=== PATIENT | female | born 1970 | race African-American/Black ===

== ENCOUNTER 2018-03-17 17:41 | Emergency (ER) | payer OTHER ==
[2018-03-17] MEDS ORDERED: ONDANSETRON 4 MG/2 ML VIAL IVPUSH ONE (18:00)
[2018-03-17] MEDS ORDERED: SODIUM CHLORIDE 0.9% 1000 ML INFUS.BAG IV ONE (18:00)
--- NOTE | 2018-03-17 18:12 | PDOC ---
Attending Attestation - [facility] HPI: 03/17/18 19:59 Patient is a 47 year old male with a significant past medical history of dilated nonischemic cardiomyopathy, who presents to the ED with complaints of vomiting that began earlier today. Patient reports experiencing constant nausea vomiting with associated shortness of breath that began earlier today prompting her to come into the ED for further evaluation. She reports to believe she is experiencing CHF exacerbation, stating she commonly experiences nausea and vomiting when she has an episode of CHF exacerbation. Denies fevers, chills. Denies contact with sick individuals, out of state travelling. Denies diarrhea, constipation. Denies dysuria, hematuria. Denies any other symptoms. Allergies: Albuterol Social history: Lives with . No smoking. No alcohol.No illicit drugs. Surgical history: defibrillator/pacemaker PMD: None Cardiology: Dr. Gilbert Brenner [phone] - Physicial Exam PE: GENERAL: Well developed, well nourished. Awake and alert. No acute distress. HEENT: Normocephalic, atraumatic. PERRLA, EOMI. No conjunctival pallor. Sclera are non- icteric. Moist mucous membranes. Oropharynx is clear. NECK: Supple. Full ROM. No JVD. Carotid pulses 2+ and symmetric, without bruits. No thyromegaly. No lymphadenopathy. CARDIOVASCULAR: Regular rate and rhythm. No murmurs, rubs, or gallops. Distal pulses are 2+ and symmetric. PULMONARY: +Rhonchi No evidence of respiratory distress. Lungs clear to auscultation bilaterally. No wheezing, rales. ABDOMINAL: Soft. Non-tender. Non-distended. No rebound or guarding. No organomegaly. Normoactive bowel sounds. MUSCULOSKELETAL Normal range of motion at all joints. No bony deformities or tenderness. No CVA tenderness. EXTREMITIES: No cyanosis. No clubbing. No edema. No calf tenderness. SKIN: Warm and dry. Normal capillary refill. No rashes. No jaundice. NEUROLOGICAL: Alert, awake, appropriate. Cranial nerves 2-12 intact. No deficits to light touch and temperature in face, upper extremities and lower extremities. No motor deficits in the in face, upper extremities and lower extremities. Normoreflexic in the upper and lower extremities. Normal speech. Toes are down-going bilaterally. Gait is normal without ataxia. PSYCHIATRIC: Cooperative. Good eye contact. Appropriate mood and affect. - Medical Decision Making 03/17/18 19:01 Washroom Attendant - Dr. Gilbert Brenner Office number: [phone] Cell number: [phone] <Charanjit Frazierew - Last Filed: 03/17/18 19:59> - Resident Resident Name: SeanPuneet rice - ED Attending Attestation I have performed the following: I have examined & evaluated the patient, The case was reviewed & discussed with the resident, I agree w/resident's findings & plan, Exceptions are as noted - HPI HPI: 03/17/18 18:10 47-year-old female brought in by ambulance for complaints of nausea, vomiting, difficulty breathing. History of dilated nonischemic cardiomyopathy with ejection fraction of 20%, defibrillator/pacemaker - Physicial Exam PE: 03/17/18 19:08 wnwd 47 yo female who presents w vomiting,hypotension and c/o shortness of breath - Medical Decision Making bedside echo did NOT show any pericardial effusion 03/17/18 19:56 03/17/18 20:50 EKG is paced rhythm -her covering pillowcase folder DR HAND requests transfer to [facility] where her cardiologists have admitting privileges ADMITTING attending @ [facility] is DR ALVARENGA IMP CHF,cardiomegaly plan TRANSFER <Marilee Lott - Last Filed: 03/17/18 20:57>
[2018-03-17 18:21] VITALS: PULSE 73; TEMP 98.5; BMI 28.5
[2018-03-17 18:36] LABS: BASO % 0.5 % (0-2.0); EOS % 0.2 % (0-4.5); HEMATOCRIT 32.3 % (32.4-45.2); HEMOGLOBIN 10.2 GM/dL (10.7-15.3); MCH 29.8 pg (25.7-33.7); MCHC 31.5 g/dl (32.0-36.0); MEAN CELL VOLUME 94.5 fl (80-96); MEAN PLT VOLUME 8.9 fl (7.5-11.1); MONO % 6.7 % (3.8-10.2); NEUT % 78.6 % (42.8-82.8); PLATELET COUNT 243 K/MM3 (134-434); RBC 3.42 M/mm3 (3.60-5.2); RDW 15.9 % (11.6-15.6); WHITE BLOOD COUNT 4.6 K/mm3 (4.0-10.0)
[2018-03-17] MEDS ORDERED: ONDANSETRON 4 MG/2 ML VIAL ONE (18:38)
[2018-03-17] MEDS ORDERED: LORazepam 2 MG/ML SDV VIAL ONE (18:42)
[2018-03-17 18:48] LABS: INR 2.13 (0.83-1.09); PROTHROMBIN TIME (PATIENT) 24.1 SEC (9.7-13.0)
[2018-03-17 18:49] VITALS: BP 112/61
[2018-03-17 19:56] LABS: ALBUMIN 3.5 g/dl (3.4-5.0); ANION GAP 10 MMOL/L (8-16); BILIRUBIN,TOTAL 0.8 mg/dL (0.2-1.0); BLOOD UREA NITROGEN 19 mg/dL (7-18); CALCIUM 8.3 mg/dL (8.5-10.1); CHLORIDE 109 mmol/L (98-107); CO2 24 mmol/L (21-32); CREATININE 0.9 mg/dL (0.55-1.02); GLUCOSE,RANDOM 72 mg/dL (74-106); SGOT/AST 29 U/L (15-37); SGPT/ALT 29 U/L (12-78); SODIUM 143 mmol/L (136-145); TOT PROT 6.7 g/dl (6.4-8.2)
[2018-03-17 19:59] LABS: ALK PHOS 91 U/L (45-117); N-TERMINAL BNP 7213.49 pg/ml (5-125)
--- NOTE | 2018-03-17 20:03 | PDOC ---
History of Present Illness - General Chief Complaint: Shortness of Breath Stated Complaint: SOB/VOMITING Time Seen by Provider: 03/17/18 17:49 History Source: Patient Exam Limitations: No Limitations - History of Present Illness Initial Comments: 03/17/18 19:48 The patient is a 47F with a PMH of NICM (familial) s/p ICD 2008 (EF 20%) and anxiety who presents to the ER with worsening shortness of breath, nausea, and vomiting. The patient states that for the past 2-3 days, she's experienced worsening shortness of breath, associated with epigastric and retrosternal chest squeezing nonradiating and intermittent, with nausea and vomiting. She vomited today after she took her medications and is unsure of which medications she vomited. Past History - Past Medical History Allergies/Adverse Reactions: Allergies Allergy/AdvReac Type Severity Reaction Status Date / Time albuterol AdvReac Verified 03/17/18 18:16 Home Medications: Ambulatory Orders Allopurinol [Zyloprim -] 100 mg PO DAILY 03/17/18 Amiodarone HCl 300 mg PO DAILY 03/17/18 Citalopram Hydrobromide [Citalopram HBr] 10 mg PO DAILY 03/17/18 Dexlansoprazole [Dexilant] 60 mg PO DAILY 03/17/18 Digoxin [Lanoxin -] 0.125 mg PO DAILY 03/17/18 Eplerenone [Inspra] 50 mg PO DAILY 03/17/18 Ferrous Sulfate 325 mg PO DAILY 03/17/18 Gabapentin 100 mg PO HS 03/17/18 Hydrocodone/Acetaminophen [Vicodin Es 7.5-300 mg Tablet] 1 each PO PRN 03/17/18 Ipratropium [place] [Atrovent Hfa] 12.9 gm IH Q4HWA PRN 03/17/18 Lorazepam [Ativan] 0.5 mg PO Q4HWA PRN 03/17/18 Metoprolol Succinate [Toprol Xl -] 25 mg PO DAILY 03/17/18 Montelukast Na [Singulair -] 10 mg PO HS 03/17/18 Promethazine HCl/Codeine [Promethazine-Codeine Syrup] 5 ml PO Q4HWA PRN Rivaroxaban [Xarelto -] 20 mg PO DAILY 03/17/18 Sacubitril/Valsartan [Entresto 24 mg-26 mg Tablet] 1 each PO BID 03/17/18 Salmeterol Xinafoate [Serevent Diskus] 1 puff IH BID 03/17/18 Torsemide [Demadex] 20 mg PO ASDIR 03/17/18 Cardiac Disorders: Yes (CARDIOMYOPATHY) COPD: No - Surgical History Cardiac Surgery: Yes (PM/DEFIB) - Suicide/Smoking/Psychosocial Hx Smoking History: Never smoked Have you smoked in the past 12 months: No If you are a former smoker, when did you quit?: 2001 Information on smoking cessation initiated: No Hx Alcohol Use: No Drug/Substance Use Hx: No Substance Use Type: None Review of Systems - Review of Systems Able to Perform ROS?: Yes Comments:: 03/17/18 20:03 GENERAL/CONSTITUTIONAL: No fever or chills. No weakness. HEAD, EYES, EARS, NOSE AND THROAT: No change in vision. No ear pain or discharge. No sore throat. CARDIOVASCULAR: Positive for chest pain. No palpitations or lightheadedness. RESPIRATORY: Positive for shortness of breath. No cough, wheezing, or hemoptysis. GASTROINTESTINAL: Positive for nausea, vomiting, and epigastric pain. No diarrhea or constipation. GENITOURINARY: No dysuria, frequency, hematuria, or change in urination. MUSCULOSKELETAL: No joint or muscle swelling or pain. No neck or back pain. SKIN: No rash or lesions. NEUROLOGIC: No headache, numbness, tingling, weakness, loss of consciousness, or change in strength/sensation. ENDOCRINE: No increased thirst. No abnormal weight change. HEMATOLOGIC/LYMPHATIC: No anemia, easy bleeding, or history of blood clots. ALLERGIC/IMMUNOLOGIC: No hives or skin allergy. Is the patient limited Scottish proficient: No *Physical Exam - Vital Signs Last Vital Signs Temp Pulse Resp BP Pulse Ox 98.5 F 73 18 112/61 100 03/17/18 17:41 03/17/18 17:41 03/17/18 17:41 03/17/18 18:48 03/17/18 17:41 - Physical Exam Comments: 03/17/18 20:05 GENERAL: Well developed, well nourished. Awake and alert. In moderate distress. HEENT: Normocephalic, atraumatic. Hearing grossly normal. Moist mucous membranes. PERRLA, EOMI. No conjunctival pallor. Sclera are non-icteric. NECK: Supple. Full ROM. No JVD. CARDIOVASCULAR: Irregularly irregular rate and rhythm. No murmurs, rubs, or gallops. PULMONARY: No evidence of respiratory distress. B/l crackles in lower lung babb. ABDOMINAL: Soft. Tender to deep palpation in epigastrium. Non-distended. No rebound or guarding. GENITOURINARY: No CVA tenderness bilaterally. MUSCULOSKELETAL: Normal range of motion at all joints. No bony deformities or tenderness. EXTREMITIES: No cyanosis. No clubbing. No edema. No calf tenderness or swelling. SKIN: Warm and dry. Normal capillary refill. No rashes. No jaundice. NEUROLOGICAL: Alert, awake, appropriate. Cranial nerves 2-12 grossly intact. Normal speech. Gait is normal without ataxia. PSYCHIATRIC: Cooperative. Good eye contact. Appropriate mood and affect. Heart Score/ECG Review - History History: Moderately suspicious - Electrocardiogram EKG: Non specific repolarization disturbance - Age Age: 45-65 - Risk Factors Risk Factors Heart Score: Yes Positive family hx of cardiac disease Based on the list above the patient has:: 1-2 risk factors #1 General ECG Interpretation: Sinus Rhythm, Normal Rate, Normal Intervals, No acute ischemic changes Compared to previous ECG there are: Changes noted 03/17/18 20:07 Vent paced rhythm irregular Rate 70 HI - QRS 196 QTc 536 No STD or HARPREET No signs of acute ischemia ED Treatment Course - LABORATORY CBC & Chemistry Diagram: 03/17/18 18:29 03/17/18 19:31 - ADDITIONAL ORDERS Additional order review: Laboratory Results 03/17/18 03/17/18 03/17/18 18:29 18:29 17:00 PT with INR 24.10 H INR 2.13 H Sodium Cancelled Potassium Cancelled Chloride Cancelled Carbon Dioxide Cancelled Anion Gap Cancelled BUN Cancelled Creatinine Cancelled Creat Clearance w eGFR Cancelled Random Glucose Cancelled Lactic Acid 3.9 H* Calcium Cancelled Total Bilirubin Cancelled AST Cancelled ALT Cancelled Alkaline Phosphatase Cancelled Creatine Kinase Cancelled Troponin I Cancelled B-Natriuretic Peptide Cancelled Total Protein Cancelled Albumin Cancelled Lipase 03/17/18 17:00 PT with INR INR Sodium Potassium Chloride Carbon Dioxide Anion Gap BUN Creatinine Creat Clearance w eGFR Random Glucose Lactic Acid Calcium Total Bilirubin AST ALT Alkaline Phosphatase Creatine Kinase Troponin I B-Natriuretic Peptide Total Protein Albumin Lipase 58 L 03/17/18 18:29 RBC 3.42 L MCV 94.5 MCHC 31.5 L RDW 15.9 H D MPV 8.9 Neutrophils % 78.6 D Lymphocytes % 14.0 D Monocytes % 6.7 Eosinophils % 0.2 D Basophils % 0.5 - RADIOLOGY Radiology Studies Ordered: Category Date Time Status CHEST X-RAY PORTABLE* [RAD] Stat Radiology 03/17/18 17:57 Taken - Medications Given in the ED: ED Medications Discontinued Medications Generic Name Dose Route Start Last Admin Trade Name Freq PRN Reason Stop Dose Admin Lorazepam 1 mg 03/17/18 19:02 03/17/18 18:40 Ativan Injection - IVPUSH 03/17/18 19:03 1 mg ONCE ONE Administration Ondansetron HCl 4 mg 03/17/18 18:00 03/17/18 18:30 Zofran Injection IVPUSH 03/17/18 18:01 4 mg ONCE ONE Administration Sodium Chloride 1,000 ml 03/17/18 18:00 03/17/18 18:36 Normal Saline - IV 03/17/18 18:01 1,000 ml ONCE ONE Administration Medical Decision Making - Medical Decision Making 03/17/18 20:09 The patient is a 47F with a PMH of NICM (EF20%) and anxiety who presents with CP , nausea, vomiting, and SOB. Pt was noted to be hypotensive 60's/40's. IV access established and IVF given. CXR preliminary read indicating cephalization of fluid, however with BP, will give fluids. BP improved with fluids. Pt more comfortable w/ zofran and ativan. Lactic of 3.9 and will continue with fluid resuscitation. Bedside echo does not reveal a pericardial effusion but does indicate an enlarged heart and decreased EF. I have discussed the pt with covering laborer steel handling, Dr. Asif who agrees to transfer for pt as all her dr's are at [facility] and she has a complicated presentation. Cardio fellow Dr. Cintron is informed of pt. Dr. Botello, ER attending, is informed of pt and accepts pt's transfer. Paperwork and consent filled out. Pt is comfortable with stable BP's. 03/17/18 20:38 BNP elevated to 7200 and trop of 0.1 likely 2/2 to demand ischemia. Will give 325 asa.
[2018-03-17] MEDS ORDERED: ASPIRIN COATED 81 MG TABLET.EC PO ONE (20:35)
[2018-03-17] MEDS ORDERED: ASPIRIN 325 MG ENTERIC COATED TABLET (FP) ONE (20:57)
--- NOTE | 2018-03-18 10:24 | EKG ---
Test Reason : Blood Pressure : / mmHG Vent. Rate : 072 BPM Atrial Rate : 089 BPM P-R Int : 000 ms QRS Dur : 196 ms QT Int : 490 ms P-R-T Axes : 000 243 037 degrees QTc Int : 536 ms Ventricular-paced rhythm Biventricular pacemaker detected ABNORMAL ECG WHEN COMPARED WITH ECG OF 18-JAN-2014 17:32, ELECTRONIC VENTRICULAR PACEMAKER HAS REPLACED SINUS RHYTHM Confirmed by FE GAONA MD ([id number]) on 03/18/2018 10:23:53 AM Referred By: Confirmed By:FE GAONA MD
== END 2018-03-17 21:02 | disposition short-term general hospital (02) ==
LOC: JER 17:41
PROC: 3E033NZ Introduction of Analgesics, Hypnotics, Sedatives into Peripheral Vein, Percutaneous Approach (ICD-10-PCS; principal; 2018-03-17)
PROC: 3E033GC Introduction of Other Therapeutic Substance into Peripheral Vein, Percutaneous Approach (ICD-10-PCS; 2018-03-17)
DX: I50.9 Heart failure, unspecified (principal); I42.0 Dilated cardiomyopathy; Z95.0 Presence of cardiac pacemaker; F41.9 Anxiety disorder, unspecified
CPT/HCPCS: 36415; 71045-TC-FY; 80053; 82550; 83605; 83690; 83880; 84484; 85025; 85610; 93005; 93010; 96374; 96375; 99284-25; J7030

== ENCOUNTER 2018-06-27 12:34 | Emergency (ER) | payer OTHER ==
[2018-06-27 13:18] VITALS: TEMP 98.9; BMI 22.6
--- NOTE | 2018-06-27 13:38 | PDOC ---
History of Present Illness - General Chief Complaint: Injury Stated Complaint: FALL Time Seen by Provider: 06/27/18 12:41 History Source: Patient Exam Limitations: No Limitations - History of Present Illness Initial Comments: 06/27/18 14:03 The patient is a 47F with a PMH of NICM (familial) s/p ICD 2007 (EF 20%) S/p heart treansplant and AICD removal in March, after she fell and hit her head against the hard wood floor. + LOC. Doesn't remember the incident. Lives with at home. She's complaining of headache, soft tissue hematoma present over left temporal head. Past History - Past Medical History Allergies/Adverse Reactions: Allergies Allergy/AdvReac Type Severity Reaction Status Date / Time albuterol AdvReac Verified 03/17/18 18:16 Home Medications: Ambulatory Orders Allopurinol [Zyloprim -] 100 mg PO DAILY 03/17/18 Amiodarone HCl 300 mg PO DAILY 03/17/18 Citalopram Hydrobromide [Citalopram HBr] 10 mg PO DAILY 03/17/18 Dexlansoprazole [Dexilant] 60 mg PO DAILY 03/17/18 Digoxin [Lanoxin -] 0.125 mg PO DAILY 03/17/18 Eplerenone [Inspra] 50 mg PO DAILY 03/17/18 Ferrous Sulfate 325 mg PO DAILY 03/17/18 Gabapentin 100 mg PO HS 03/17/18 Hydrocodone/Acetaminophen [Vicodin Es 7.5-300 mg Tablet] 1 each PO PRN 03/17/18 Ipratropium [place] [Atrovent Hfa] 12.9 gm IH Q4HWA PRN 03/17/18 Lorazepam [Ativan] 0.5 mg PO Q4HWA PRN 03/17/18 Metoprolol Succinate [Toprol Xl -] 25 mg PO DAILY 03/17/18 Montelukast Na [Singulair -] 10 mg PO HS 03/17/18 Promethazine HCl/Codeine [Promethazine-Codeine Syrup] 5 ml PO Q4HWA PRN Rivaroxaban [Xarelto -] 20 mg PO DAILY 03/17/18 Sacubitril/Valsartan [Entresto 24 mg-26 mg Tablet] 1 each PO BID 03/17/18 Salmeterol Xinafoate [Serevent Diskus] 1 puff IH BID 03/17/18 Torsemide [Demadex] 20 mg PO ASDIR 03/17/18 Cardiac Disorders: Yes (CARDIOMYOPATHY) COPD: No - Surgical History Cardiac Surgery: Yes (PM/DEFIB) - Suicide/Smoking/Psychosocial Hx Smoking History: Never smoked Have you smoked in the past 12 months: No If you are a former smoker, when did you quit?: 2001 Hx Alcohol Use: No Drug/Substance Use Hx: No Substance Use Type: None Review of Systems - Review of Systems Able to Perform ROS?: Yes Is the patient limited French proficient: No Constitutional: No: Symptoms Reported HEENTM: Yes: See HPI Respiratory: No: Symptoms reported Cardiac (ROS): No: Symptoms Reported ABD/GI: No: Symptoms Reported : No: Symptoms Reported Musculoskeletal: No: Symptoms Reported Integumentary: No: Symptoms Reported Neurological: Yes: See HPI, Headache. No: Seizure, Tingling All Other Systems: Reviewed and Negative *Physical Exam - Vital Signs Last Vital Signs Temp Pulse Resp BP Pulse Ox 98.9 F 76 18 125/92 100 06/27/18 12:46 06/27/18 12:46 06/27/18 12:46 06/27/18 12:46 06/27/18 12:46 - Physical Exam General Appearance: Yes: Nourished, Appropriately Dressed, Apparent Distress, Moderate Distress HEENT: positive: EOMI, JAGDISH, Other (Soft tissue hematoma over left temporal side of head) Respiratory/Chest: positive: Lungs Clear, Normal Breath Sounds. negative: Chest Tender, Respiratory Distress Cardiovascular: positive: Regular Rhythm, Regular Rate, S1, S2 Gastrointestinal/Abdominal: positive: Normal Bowel Sounds, Flat, Soft. negative : Tender Extremity: positive: Normal Capillary Refill, Normal Inspection, Normal Range of Motion Integumentary: positive: Normal Color, Dry, Warm Neurologic: positive: Fully Oriented, Alert, Normal Mood/Affect, Motor Strength 5/5. negative: Normal Response (Taking longer to recall event, uncomfotable with the headache) Moderate Sedation - Procedure Monitoring Vital Signs: Procedure Monitoring Vital Signs Temperature 98.9 F 06/27/18 12:46 Pulse Rate 76 06/27/18 12:46 Respiratory Rate 18 06/27/18 12:46 Blood Pressure 125/92 06/27/18 12:46 O2 Sat by Pulse Oximetry (%) 100 06/27/18 12:46 ED Treatment Course - LABORATORY CBC & Chemistry Diagram: 06/27/18 13:02 06/27/18 13:02 - RADIOLOGY Radiology Studies Ordered: Category Date Time Status HEAD CT WITHOUT CONTRAST [CT] Stat CT Scan 06/27/18 12:38 Completed CHEST PA & LAT [RAD] Stat Radiology 06/27/18 13:01 Ordered Medical Decision Making - Medical Decision Making 06/27/18 14:17 47F s/p heart transplant on eliquis s/p fall and headache Intracranial bleed vs concussion Bilateral frontal subarachnoid hemorrhage, superiorly, left more the right. No gross acute intraparenchymal hemorrhage is seen. There is no shift of the midline structures. The calvarium is intact. Mild extracranial soft tissue swelling/hematoma over the left posterior parietal /occipital bone, superiorly. Close follow-up is recommended. Transfering patient to [place]. Spoke to Dr. oCrea, Neurosurgeon who will see the patient in [facility]'s ER. Pain control here with morphine and basic blood work. *DC/Admit/Observation/Transfer Diagnosis at time of Disposition: Subarachnoid hemorrhage following injury with brief loss of consciousness but without open intracranial wound - Discharge Dispostion Disposition: TRANSFER ACUTE CARE/OTHER HOSP - Referrals - Patient Instructions - Post Discharge Activity - Transfer to Acute Care Facility Receiving Facility: [facility]. Accepting Physician:: Anmol
[2018-06-27] MEDS ORDERED: morphine SULFATE 4 MG/ML VIAL ONE (13:41)
[2018-06-27] MEDS ORDERED: morphine SULFATE 4 MG/ML VIAL IVPUSH ONE (13:46)
--- NOTE | 2018-06-27 13:48 | PDOC ---
Attending Attestation - Resident Resident Name: RicardoTrell - ED Attending Attestation I have performed the following: I have examined & evaluated the patient, The case was reviewed & discussed with the resident, I agree w/resident's findings & plan, Exceptions are as noted - HPI HPI: 06/27/18 13:50 47 F with h/o dilated CM s/p OHT 3 months ago at [facility] (on eliquis) presenting to ED with syncope and headache. Pt states that she was feeling lightheaded all day. The last thing she remembers is carrying heavy bags of groceries. Pt states she woke up on the ground with a severe headache. Did not have headache prior to fainting. Denies N/V. Denies any CP/SOB/palpitations at any time. - Physicial Exam PE: 06/27/18 13:55 "GENERAL: Awake, alert, and fully oriented, in no acute distress. HEAD: No signs of trauma EYES: PERRLA, EOMI, sclera anicteric, conjunctiva clear ENT: Auricles normal inspection, hearing grossly normal, nares patent, oropharynx clear without exudates. Moist mucosa NECK: Nontender, no stepoffs, Normal ROM, supple, no lymphadenopathy, JVD, or masses LUNGS: Breath sounds equal, clear to auscultation bilaterally. No wheezes, and no crackles HEART: Regular rate and rhythm, normal S1 and S2, no murmurs, rubs or gallops ABDOMEN: Soft, nontender, normoactive bowel sounds. No guarding, no rebound. No masses EXTREMITIES: Normal range of motion, no edema. No clubbing or cyanosis. No cords, erythema, or tenderness NEUROLOGICAL: Cranial nerves II through XII intact. 5/5 strength and sensation in all extremities, Normal speech, normal gait, normal cerebellar function SKIN: Warm, Dry, normal turgor, no rashes or lesions noted. - Critical Care Time Total Critical Care Time: 45 Critical Care Statement: The care of this patient involved high complexity decision making to prevent further life threatening deterioration of the patient 's condition and/or to evaluate & treat vital organ system(s) failure or risk of failure. - Medical Decision Making 06/27/18 13:55 47 F with syncopal episode, now with severe headache. No neck pain reported, full ROM, no midline tenderness to suggest c spine injury. CT head shows bilateral SAH Unclear at this time whether pt syncopized 2/2 spontaneous SAH or if pt had syncopal event that led to traumatic SAH. Pt has h/o heart transplant. EKG currently with no significant abnormalities. Vitals stable, no hypotension or tachycardia Discussed case with patrick Gifford senior solutions engineer, who recommends transfer to [facility] given pt's complicated medical history. Spoke with [facility] transfer center, pt accepted for transfer by Dr. Corea, who recommends loading with keppra but does not want pt's anticoagulation reversed at this time.
[2018-06-27 13:55] LABS: BASO % 0.2 % (0-2.0); EOS % 0.2 % (0-4.5); HEMATOCRIT 24.9 % (32.4-45.2); HEMOGLOBIN 7.5 GM/dL (10.7-15.3); LYMPH % 3.6 % (8-40); MCH 29.1 pg (25.7-33.7); MCHC 29.9 g/dl (32.0-36.0); MEAN CELL VOLUME 97.3 fl (80-96); MEAN PLT VOLUME 9.2 fl (7.5-11.1); MONO % 3.9 % (3.8-10.2); NEUT % 92.1 % (42.8-82.8); PLATELET COUNT 156 K/MM3 (134-434); RBC 2.56 M/mm3 (3.60-5.2); RDW 19.4 % (11.6-15.6)
[2018-06-27 14:01] VITALS: BP 101/68
[2018-06-27 14:01] LABS: WHITE BLOOD COUNT 34.2 K/mm3 (4.0-10.0)
[2018-06-27] MEDS ORDERED: morphine CARPU-JECT 2 MG/1 ML DISP.SYRIN IVPUSH ONE (14:03)
[2018-06-27] MEDS ORDERED: MORPHINE SULFATE 2 MG/ML VIAL ONE (14:06)
[2018-06-27 14:19] LABS: INR 1.57 (0.83-1.09); PROTHROMBIN TIME (PATIENT) 18.6 SEC (9.7-13.0)
[2018-06-27 14:22] LABS: ACTIVATED PTT 29.8 SECONDS (25.2-36.5)
[2018-06-27 14:36] VITALS: PULSE 98
[2018-06-27 14:37] LABS: ALK PHOS 148 U/L (45-117); ANION GAP 7 MMOL/L (8-16); BILIRUBIN,TOTAL 0.5 mg/dL (0.2-1); BLOOD UREA NITROGEN 21 mg/dL (7-18); CALCIUM 8.7 mg/dL (8.5-10.1); CHLORIDE 105 mmol/L (98-107); CO2 30 mmol/L (21-32); CREATININE 1.4 mg/dL (0.55-1.3); GLUCOSE,RANDOM 76 mg/dL (74-106); POTASSIUM 3.5 mmol/L (3.5-5.1); SGOT/AST 38 U/L (15-37); SGPT/ALT 14 U/L (13-61); SODIUM 142 mmol/L (136-145); TOT PROT 5.4 g/dl (6.4-8.2)
[2018-06-27 14:49] LABS: ANISOCYTOSIS 1+; MACROCYTOSIS 1+; OVALOCYTE 1+; PLATELET ESTIMATE DECREASED
--- NOTE | 2018-06-27 15:52 | EKG ---
Test Reason : Blood Pressure : / mmHG Vent. Rate : 094 BPM Atrial Rate : 094 BPM P-R Int : 112 ms QRS Dur : 088 ms QT Int : 394 ms P-R-T Axes : 045 040 002 degrees QTc Int : 492 ms NORMAL SINUS RHYTHM POSSIBLE LEFT ATRIAL ENLARGEMENT POSSIBLE INFERIOR INFARCT , AGE UNDETERMINED ABNORMAL ECG WHEN COMPARED WITH ECG OF 17-MAR-2018 17:59, SINUS RHYTHM HAS REPLACED ELECTRONIC VENTRICULAR PACEMAKER Confirmed by ABIDA BRASHER, CODY ([id number]) on 06/27/2018 3:51:55 PM Referred By: Confirmed By:CODY TAI MD
== END 2018-06-27 14:44 | disposition short-term general hospital (02) ==
LOC: JER 12:34
PROC: 3E033NZ Introduction of Analgesics, Hypnotics, Sedatives into Peripheral Vein, Percutaneous Approach (ICD-10-PCS; principal; 2018-06-27)
DX: I60.9 Nontraumatic subarachnoid hemorrhage, unspecified (principal); R55 Syncope and collapse
CPT/HCPCS: 36415; 70450-TC; 71045-TC-FY; 80053; 84484; 85025; 85610; 85730; 93005; 93010; 99285-25

== ENCOUNTER 2021-08-10 18:03 | Inpatient (IN) | payer OTHER ==
[2021-08-10] MEDS ORDERED: LACTATED RINGERS SOLUTION 1000 ML INFUS.BAG IV ONE (19:52)
[2021-08-10 19:53] VITALS: BMI 21.2
[2021-08-10] MEDS ORDERED: ONDANSETRON 4 MG/2 ML VIAL IVPUSH ONE (20:33)
[2021-08-10] MEDS ORDERED: ONDANSETRON 4 MG/2 ML VIAL ONE (20:40)
[2021-08-10 21:28] LABS: BASO % 0.4 % (0-2.0); EOS % 0.2 % (0-4.5); HEMATOCRIT 28.7 % (32.4-45.2); MCH 28.9 pg (25.7-33.7); MCHC 31.6 g/dl (32.0-36.0); MEAN CELL VOLUME 91.7 fl (80-96); MONO % 16.2 % (3.8-10.2); NEUT % 54.2 % (42.8-82.8); PLATELET COUNT 171 10^3/uL (134-434); RBC 3.13 M/mm3 (3.60-5.2); WHITE BLOOD COUNT 2.9 K/mm3 (4.0-10.0)
[2021-08-10 21:42] LABS: CHLORIDE 108 mmol/L (98-107); SODIUM 138 mmol/L (136-145)
[2021-08-10 21:43] LABS: ALBUMIN 3.9 g/dl (3.4-5.0); ANION GAP 9 MMOL/L (8-16); BLOOD UREA NITROGEN 60.3 mg/dL (7-18); CO2 22 mmol/L (21-32); GLUCOSE,RANDOM 90 mg/dL (74-106); MAGNESIUM 2.4 mg/dL (1.8-2.4)
[2021-08-10 21:47] LABS: CREATININE 3.4 mg/dL (0.55-1.3); SGOT/AST 17 U/L (15-37); SGPT/ALT 15 U/L (13-61)
[2021-08-10 21:48] LABS: BILIRUBIN,TOTAL 0.4 mg/dL (0.2-1)
[2021-08-10 21:49] LABS: ALK PHOS 64 U/L (45-117)
[2021-08-10 21:51] LABS: N-TERMINAL BNP 1751.6 pg/ml (5-125)
[2021-08-10] MEDS ORDERED: REMDESIVIR 200 MG in SODIUM CHLORIDE 250 ML IVPB ONE (22:58)
[2021-08-10 23:08] LABS: INR 1.16 (0.83-1.09); PROTHROMBIN TIME (PATIENT) 13.4 SEC (9.7-13.0)
[2021-08-10 23:10] LABS: ACTIVATED PTT 29.8 SECONDS (25.2-36.5)
[2021-08-11] MEDS ORDERED: ACETAMINOPHEN 1000 MG/100 ML BAG IVPB ONE (00:21)
[2021-08-11] MEDS: HEPARIN NA (PORCINE) 5,000 UNITS/ML 1ML VIAL SQ SCH ×3 (06:23→21:23)
[2021-08-11] MEDS ORDERED: SODIUM CHLORIDE 0.45% 1,000 ML IV SCH (10:45)
[2021-08-11] MEDS ORDERED: LACTATED RINGERS SOLUTION 1,000 ML/1,000 ML INFUS.BAG IV SCH (10:45)
[2021-08-11] MEDS ORDERED: SODIUM ZIRCONIUM CYCLOSILICATE (LOKELMA) 5 GM PACKET PO ONE (11:15)
[2021-08-11 14:00] LABS: HEMATOCRIT 28.8 % (32.4-45.2); HEMOGLOBIN 8.9 GM/dL (10.7-15.3); MCH 28.6 pg (25.7-33.7); MCHC 31.1 g/dl (32.0-36.0); MEAN CELL VOLUME 92.1 fl (80-96); MEAN PLT VOLUME 10.6 fl (7.5-11.1); PLATELET COUNT 180 10^3/uL (134-434); RBC 3.12 M/mm3 (3.60-5.2); RDW 13.5 % (11.6-15.6); WHITE BLOOD COUNT 2.6 K/mm3 (4.0-10.0)
[2021-08-11] MEDS ORDERED: SOTROVIMAB 500 MG in SODIUM CHLORIDE 100 ML IVPB ONE (14:00)
[2021-08-11 14:47] LABS: CALCIUM 8.8 mg/dL (8.5-10.1)
[2021-08-11 14:48] LABS: ALBUMIN 3.7 g/dl (3.4-5.0); BLOOD UREA NITROGEN 60.6 mg/dL (7-18); MAGNESIUM 2.3 mg/dL (1.8-2.4)
[2021-08-11 14:51] LABS: CREATININE 3.1 mg/dL (0.55-1.3); PHOSPHOROUS 4.9 mg/dL (2.5-4.9)
[2021-08-11] MEDS: ASPIRIN 81 MG CHEWABLE TABLETS PO SCH (14:51)
[2021-08-11] MEDS: DULoxetine HCL 20 MG CAPSULE.DR PO SCH (14:51)
[2021-08-11 14:53] LABS: BILIRUBIN,TOTAL 0.3 mg/dL (0.2-1); TOT PROT 6.8 g/dl (6.4-8.2)
[2021-08-11] MEDS ORDERED: ACETAMINOPHEN 1000 MG/100 ML BAG IVPB PRN (15:52)
[2021-08-11] MEDS ORDERED: DEXTROSE 5%-WATER - 50 ML IVPB ONE (16:45)
[2021-08-11] MEDS ORDERED: PIPERACILLIN/TAZOBACTAM 2.25 GM VIAL IVPB ONE (16:45)
[2021-08-11] MEDS ORDERED: VANCOMYCIN/WATER FOR INJ (PEG) 750 MG/150 ML BAG IVPB ONE (17:00)
[2021-08-11] MEDS: PIPERACILLIN/TAZOB 2.25 GM 2.25 GM in DEXTROSE 5%-WATER - 50 ML IVPB SCH (17:16)
[2021-08-11] MEDS: FAMOTIDINE 40 MG TABLET PO SCH (21:22)
[2021-08-11] MEDS: VORICONAZOLE 200 MG TABLET (RESTRICTED TO ID) PO SCH (21:22)
[2021-08-11] MEDS: MIRTAZAPINE 30 MG TABLET PO SCH (21:23)
[2021-08-12] MEDS ORDERED: DEXTROSE 5%-WATER - 50 ML IVPB ONE ×3 (00:49→16:35)
[2021-08-12] MEDS ORDERED: PIPERACILLIN/TAZOBACTAM 2.25 GM VIAL IVPB ONE ×3 (00:49→16:35)
[2021-08-12] MEDS: PIPERACILLIN/TAZOB 2.25 GM 2.25 GM in DEXTROSE 5%-WATER - 50 ML IVPB SCH ×3 (01:21→17:41)
[2021-08-12] MEDS: HEPARIN NA (PORCINE) 5,000 UNITS/ML 1ML VIAL SQ SCH ×3 (05:01→21:36)
[2021-08-12 07:50] LABS: BASO % 0.4 % (0-2.0); EOS % 1.2 % (0-4.5); HEMATOCRIT 26.3 % (32.4-45.2); HEMOGLOBIN 8.3 GM/dL (10.7-15.3); LYMPH % 31.9 % (8-40); MCH 28.7 pg (25.7-33.7); MCHC 31.5 g/dl (32.0-36.0); MEAN CELL VOLUME 91.3 fl (80-96); MEAN PLT VOLUME 10.4 fl (7.5-11.1); MONO % 15.7 % (3.8-10.2); NEUT % 50.8 % (42.8-82.8); PLATELET COUNT 189 10^3/uL (134-434); RBC 2.88 M/mm3 (3.60-5.2); RDW 13.8 % (11.6-15.6); WHITE BLOOD COUNT 2.3 K/mm3 (4.0-10.0)
[2021-08-12 08:08] LABS: ALBUMIN 3.5 g/dl (3.4-5.0); BLOOD UREA NITROGEN 54.8 mg/dL (7-18); CALCIUM 8.7 mg/dL (8.5-10.1); MAGNESIUM 2.3 mg/dL (1.8-2.4)
[2021-08-12 08:12] LABS: CREATININE 2.5 mg/dL (0.55-1.3)
[2021-08-12 08:13] LABS: BILIRUBIN,TOTAL 0.4 mg/dL (0.2-1); TOT PROT 6.5 g/dl (6.4-8.2)
[2021-08-12] MEDS: DULoxetine HCL 20 MG CAPSULE.DR PO SCH (10:00)
[2021-08-12] MEDS: MULTIVITAMINS (DAILY MVI) TABLET (FP) PO SCH (10:00)
[2021-08-12] MEDS: ASPIRIN 81 MG CHEWABLE TABLETS PO SCH (10:00)
[2021-08-12] MEDS: VORICONAZOLE 200 MG TABLET (RESTRICTED TO ID) PO SCH ×2 (10:01→21:36)
[2021-08-12] MEDS ORDERED: SODIUM CHLORIDE 0.45% 1,000 ML IV SCH (13:45)
[2021-08-12 17:39] LABS: EPI CELLS 15 /uL (0-25.1); HYALINE CASTS 0 /uL (0-3.1); URINE APPEARANCE TURBID; URINE BACTERIA 19 /uL (0-1359); URINE BILIRUBIN NEGATIVE (NEGATIVE); URINE COLOR YELLOW; URINE GLUCOSE (UA) NEGATIVE (NEGATIVE); URINE KETONE NEGATIVE (NEGATIVE); URINE LEUK ESTERASE 1+ (NEGATIVE); URINE NITRITE NEGATIVE (NEGATIVE); URINE PROTEIN 2+ (NEGATIVE); URINE RBC 1463 /uL (0-23.9); URINE UROBILINOGEN 0.2 mg/dL (0.2-1.0); URINE WBC 35 /uL (0-25.8)
[2021-08-12] MEDS: TACROLIMUS ANHYDROUS 1 MG CAPSULE PO SCH (21:35)
[2021-08-12] MEDS: FAMOTIDINE 40 MG TABLET PO SCH (21:36)
[2021-08-12] MEDS: MIRTAZAPINE 30 MG TABLET PO SCH (21:53)
[2021-08-13] MEDS ORDERED: PIPERACILLIN/TAZOBACTAM 2.25 GM VIAL IVPB ONE ×2 (00:43→10:34)
[2021-08-13] MEDS ORDERED: DEXTROSE 5%-WATER - 50 ML IVPB ONE ×2 (00:44→10:34)
[2021-08-13] MEDS: PIPERACILLIN/TAZOB 2.25 GM 2.25 GM in DEXTROSE 5%-WATER - 50 ML IVPB SCH ×2 (01:06→10:37)
[2021-08-13] MEDS: HEPARIN NA (PORCINE) 5,000 UNITS/ML 1ML VIAL SQ SCH ×3 (06:44→21:44)
[2021-08-13] MEDS: VORICONAZOLE 200 MG TABLET (RESTRICTED TO ID) PO SCH ×2 (10:37→21:46)
[2021-08-13] MEDS: MULTIVITAMINS (DAILY MVI) TABLET (FP) PO SCH (10:37)
[2021-08-13] MEDS: DULoxetine HCL 20 MG CAPSULE.DR PO SCH (10:37)
[2021-08-13] MEDS: ASPIRIN 81 MG CHEWABLE TABLETS PO SCH (10:37)
[2021-08-13] MEDS: TACROLIMUS ANHYDROUS 1 MG CAPSULE PO SCH ×2 (10:38→21:47)
[2021-08-13 10:50] LABS: BASO % 0.4 % (0-2.0); EOS % 4.2 % (0-4.5); HEMOGLOBIN 9.8 GM/dL (10.7-15.3); LYMPH % 53.3 % (8-40); MCH 28.9 pg (25.7-33.7); MCHC 31.6 g/dl (32.0-36.0); MEAN CELL VOLUME 91.6 fl (80-96); MEAN PLT VOLUME 9.9 fl (7.5-11.1); MONO % 13.9 % (3.8-10.2); NEUT % 28.2 % (42.8-82.8); PLATELET COUNT 248 10^3/uL (134-434); RBC 3.39 M/mm3 (3.60-5.2); RDW 14.2 % (11.6-15.6); WHITE BLOOD COUNT 3.3 K/mm3 (4.0-10.0)
[2021-08-13 11:20] LABS: BLOOD UREA NITROGEN 43.5 mg/dL (7-18); CALCIUM 9.5 mg/dL (8.5-10.1); MAGNESIUM 2.3 mg/dL (1.8-2.4)
[2021-08-13 11:23] LABS: PHOSPHOROUS 4.1 mg/dL (2.5-4.9)
[2021-08-13 11:24] LABS: CREATININE 2.2 mg/dL (0.55-1.3)
[2021-08-13] MEDS ORDERED: ACETAMINOPHEN 325 MG TABLET (FP) PO PRN (11:30)
[2021-08-13] MEDS ORDERED: SODIUM CHLORIDE 0.45% 1,000 ML IV SCH (12:00)
[2021-08-13] MEDS ORDERED: MELATONIN 5 MG TABLETS PO PRN (20:05)
[2021-08-13] MEDS: guaiFENesin 200 MG/10 ML 10 ML UNIT-DOSE CUPS PO SCH (21:44)
[2021-08-13] MEDS: MIRTAZAPINE 30 MG TABLET PO SCH (21:45)
[2021-08-13] MEDS: FAMOTIDINE 40 MG TABLET PO SCH (21:45)
[2021-08-14] MEDS: guaiFENesin 200 MG/10 ML 10 ML UNIT-DOSE CUPS PO SCH ×2 (05:18→13:31)
[2021-08-14] MEDS: HEPARIN NA (PORCINE) 5,000 UNITS/ML 1ML VIAL SQ SCH ×2 (05:32→13:32)
[2021-08-14 07:34] LABS: BASO % 0.6 % (0-2.0); EOS % 4.9 % (0-4.5); HEMATOCRIT 26.6 % (32.4-45.2); HEMOGLOBIN 8.4 GM/dL (10.7-15.3); LYMPH % 37.5 % (8-40); MCH 28.9 pg (25.7-33.7); MCHC 31.5 g/dl (32.0-36.0); MEAN CELL VOLUME 91.7 fl (80-96); MEAN PLT VOLUME 9.3 fl (7.5-11.1); MONO % 18.3 % (3.8-10.2); NEUT % 38.7 % (42.8-82.8); PLATELET COUNT 205 10^3/uL (134-434); RDW 13.9 % (11.6-15.6); WHITE BLOOD COUNT 2.1 K/mm3 (4.0-10.0)
[2021-08-14 08:09] LABS: CALCIUM 9.1 mg/dL (8.5-10.1)
[2021-08-14 08:10] LABS: BLOOD UREA NITROGEN 44.9 mg/dL (7-18)
[2021-08-14 08:13] LABS: CREATININE 2.4 mg/dL (0.55-1.3)
[2021-08-14] MEDS: ASPIRIN 81 MG CHEWABLE TABLETS PO SCH (10:36)
[2021-08-14] MEDS: MULTIVITAMINS (DAILY MVI) TABLET (FP) PO SCH (10:36)
[2021-08-14] MEDS: DULoxetine HCL 20 MG CAPSULE.DR PO SCH (10:36)
[2021-08-14] MEDS: TACROLIMUS ANHYDROUS 1 MG CAPSULE PO SCH (11:26)
[2021-08-14] MEDS: VORICONAZOLE 200 MG TABLET (RESTRICTED TO ID) PO SCH (11:27)
[2021-08-14 15:45] VITALS: BP 113/87; PULSE 120; TEMP 97.3
== END 2021-08-14 15:42 | disposition home or self-care (01) | DRG 178 ==
LOC: JER 18:03 → JERBED 22:43 → J4S 08-11 05:29 → J8W 08-14 10:16
PROVIDERS: ADMIT Internal Medicine; ATTEND Internal Medicine
PROC: XW033H6 Introduction of Other New Technology Monoclonal Antibody into Peripheral Vein, Percutaneous Approach, New Technology Group 6 (ICD-10-PCS; principal; 2021-08-10)
PROC: XW033E5 Introduction of Remdesivir Anti-infective into Peripheral Vein, Percutaneous Approach, New Technology Group 5 (ICD-10-PCS; 2021-08-10)
DX: U07.1 COVID-19 (principal); I42.0 Dilated cardiomyopathy; I13.0 Hypertensive heart and chronic kidney disease with heart failure and stage 1 through stage 4 chronic kidney disease, or unspecified chronic kidney disease; I50.22 Chronic systolic (congestive) heart failure; N17.9 Acute kidney failure, unspecified; Z94.1 Heart transplant status; M79.7 Fibromyalgia; N18.9 Chronic kidney disease, unspecified; E87.5 Hyperkalemia; G47.33 Obstructive sleep apnea (adult) (pediatric); M10.9 Gout, unspecified; E78.5 Hyperlipidemia, unspecified; R19.7 Diarrhea, unspecified; R82.81 Pyuria; D64.9 Anemia, unspecified; F41.8 Other specified anxiety disorders; G62.9 Polyneuropathy, unspecified; E86.0 Dehydration; Z98.84 Bariatric surgery status; Z95.810 Presence of automatic (implantable) cardiac defibrillator
CPT/HCPCS: 36415; 71045-TC-FY; 76775-TC; 80048; 80053; 80180; 80197; 81003; 82550; 82570; 82728; 83605; 83615; 83735; 83880; 84100; 84156; 84484; 85025; 85027; 85379; 85610; 85730; 86140; 87040; 87086; 93005; 93010; 93306-TC; 99285-25; C9399; C9803; J0131; J1644; J3465; M0247; Q0247; U0003; U0005

== ENCOUNTER 2023-08-13 23:25 | Observation (INO) | payer BC, OTHER ==
[2023-08-13 23:32] VITALS: BMI 29.7
[2023-08-14] MEDS ORDERED: PIPERACILLIN/TAZOB 4.5 GM 4.5 GM in DEXTROSE 5%-WATER 100 ML IVPB ONE (01:40)
[2023-08-14] MEDS ORDERED: ACETAMINOPHEN 1000 MG/100 ML BAG IVPB ONE (01:40)
[2023-08-14] MEDS ORDERED: ACETAMINOPHEN INJECTION 100 ML IVPB ONE (02:02)
[2023-08-14] MEDS ORDERED: PIPERACILLIN/TAZOB 4.5 GM 4.5 GM/100 ML BAG IVPB ONE (02:02)
[2023-08-14 02:51] LABS: BASO % 0.5 % (0-2.0); EOS % 0.6 % (0-4.5); HEMATOCRIT 30.3 % (32.4-45.2); HEMOGLOBIN 9.6 GM/dL (10.7-15.3); LYMPH % 27.3 % (8-40); MCH 28.1 pg (25.7-33.7); MCHC 31.5 g/dl (32.0-36.0); MEAN CELL VOLUME 89.4 fl (80-96); MEAN PLT VOLUME 8.1 fl (7.5-11.1); MONO % 11.1 % (3.8-10.2); NEUT % 60.5 % (42.8-82.8); PLATELET COUNT 235 10^3/uL (134-434); RDW 14.7 % (11.6-15.6); WHITE BLOOD COUNT 4.5 K/mm3 (4.0-10.0)
[2023-08-14 02:59] LABS: INR 1.08 (0.83-1.09); PROTHROMBIN TIME (PATIENT) 12.5 SEC (9.7-13.0)
[2023-08-14 03:01] LABS: ACTIVATED PTT 32.2 SECONDS (25.2-36.5)
[2023-08-14 03:30] LABS: POTASSIUM 4.4 mmol/L (3.5-5.1)
[2023-08-14 03:32] LABS: BLOOD UREA NITROGEN 42.1 mg/dL (7-18); CALCIUM 8.8 mg/dL (8.5-10.1)
[2023-08-14 03:33] LABS: ALBUMIN 3.8 g/dl (3.4-5.0)
[2023-08-14 03:37] LABS: BILIRUBIN,TOTAL 0.3 mg/dL (0.2-1); TOT PROT 7.2 g/dl (6.4-8.2)
[2023-08-14] MEDS ORDERED: ACETAMINOPHEN 325 MG TABLET (FP) PO PRN (05:55)
[2023-08-14] MEDS ORDERED: AMPICILLIN NA/SULBACTAM NA 1.5 GM in SODIUM CHLORIDE 100 ML IVPB SCH (06:00)
[2023-08-14] MEDS ORDERED: LACTATED RINGERS SOLUTION 1,000 ML/1,000 ML INFUS.BAG IV SCH (06:00)
[2023-08-14] MEDS ORDERED: AMPICILLIN NA/SULBACTAM NA 1.5 GM VIAL ONE (06:16)
[2023-08-14] MEDS ORDERED: PIPERACILLIN/TAZOB 2.25 GM 2.25 GM/50 ML BAG IVPB ONE (08:53)
[2023-08-14] MEDS ORDERED: PIPERACILLIN/TAZOB 2.25 GM 2.25 GM in DEXTROSE 5%-WATER - 50 ML IVPB SCH (09:00)
[2023-08-14 09:50] VITALS: BP 134/111; PULSE 80; RESP 16; TEMP 98.2
[2023-08-14] MEDS ORDERED: ASPIRIN 81 MG CHEWABLE TABLETS PO SCH (10:00)
[2023-08-14] MEDS ORDERED: TACROLIMUS ANHYDROUS 1 MG CAPSULE PO SCH (10:00)
[2023-08-14] MEDS ORDERED: MYCOPHENOLATE SODIUM 180 MG PO SCH (10:00)
[2023-08-14] MEDS ORDERED: predniSONE 1 MG TABLET (FP) PO SCH (10:00)
[2023-08-14] MEDS ORDERED: TACROLIMUS ANHYDROUS PO SCH (10:00)
== END 2023-08-14 09:49 | disposition left against medical advice (07) ==
LOC: JERFT 23:25 → INTOOBSV 08-14 04:08 → JERBED 08-14 04:08
PROVIDERS: ADMIT Internal Medicine; ATTEND Nurse Practitioner Acute Care
PROC: 3E033NZ Introduction of Analgesics, Hypnotics, Sedatives into Peripheral Vein, Percutaneous Approach (ICD-10-PCS; principal; 2023-08-14)
PROC: 3E03329 Introduction of Other Anti-infective into Peripheral Vein, Percutaneous Approach (ICD-10-PCS; 2023-08-14)
PROC: 3E0337Z Introduction of Electrolytic and Water Balance Substance into Peripheral Vein, Percutaneous Approach (ICD-10-PCS; 2023-08-14)
DX: S61.452A Open bite of left hand, initial encounter (principal); W55.01XA Bitten by cat, initial encounter; Y93.89 Activity, other specified; Y92.89 Other specified places as the place of occurrence of the external cause; N18.9 Chronic kidney disease, unspecified; L53.8 Other specified erythematous conditions; M79.642 Pain in left hand; Z95.810 Presence of automatic (implantable) cardiac defibrillator; L03.114 Cellulitis of left upper limb; Z94.1 Heart transplant status; M79.7 Fibromyalgia; R45.1 Restlessness and agitation; I42.0 Dilated cardiomyopathy; Z29.89 Encounter for other specified prophylactic measures; Z88.8 Allergy status to other drugs, medicaments and biological substances
CPT/HCPCS: 36415; 73130-TC-LT-FY; 80053; 85025; 85610; 85730; 86140; 93005; 93010; 96361; 96365; 96367; 96368; 96375; 99285-25; G0378